=== PATIENT | female | born 1995 | race Caucasian/White ===

== ENCOUNTER 2024-01-24 09:25 | Inpatient (IN) | payer MEDICAID ==
[2024-01-24] MEDS ORDERED: Sodium Chloride 0.9% 10 ML Syringe FLUSH PRN ×2 (10:27→14:04)
[2024-01-24 10:55] LABS: BASOPHILS PERCENT AUTO 0.4 % (0.0-1.0); EOSINOPHILS ABSOLUTE AUTO 0.1 K/mm3 (0.0-0.4); EOSINOPHILS PERCENT AUTO 0.9 % (0.0-6.0); HEMATOCRIT 30.1 % (37.0-47.0); HEMOGLOBIN 9.7 gm/dl (12.0-16.0); IMMATURE GRAN ABSOLUTE AUTO 0.02 K/mm3 (0.00-0.05); IMMATURE GRAN PERCENT AUTO 0.4 % (0.0-0.4); LYMPHOCYTES ABSOLUTE AUTO 1.8 K/mm3 (1.0-4.8); MEAN CORPUSCULAR HEMOGLOBIN 25.1 pg (28.0-32.0); MEAN CORPUSCULAR HGB CONC 32.2 g/dl (32.0-36.0); MEAN PLATELET VOLUME 9.7 fl (9.4-12.3); MONOCYTES ABSOLUTE AUTO 0.4 K/mm3 (0.0-0.8); NEUTROPHILS ABSOLUTE AUTO 3.3 K/mm3 (1.8-7.7); NEUTROPHILS PERCENT AUTO 59.3 % (41.0-71.0); PLATELET COUNT,PLT 226 K/mm3 (150-400); RED BLOOD CELL COUNT 3.86 M/mm3 (4.10-5.30)
[2024-01-24] MEDS: Lactated Ringers 1,000 ML IV SCH (10:55)
[2024-01-24] MEDS: Azithromycin 500 MG in Sodium Chloride 0.9% 250 ML IV ONE (11:00)
[2024-01-24] MEDS: Metoclopramide 10 MG/2 ML SDV IVPUSH ONE (11:58)
[2024-01-24] MEDS: Citric Acid/Sodium Citrate Solution 30 ML Cup PO ONE (11:59)
[2024-01-24] MEDS ORDERED: Ondansetron 4 MG/2 ML SDV ONE (12:04)
[2024-01-24] MEDS ORDERED: Ketorolac 30 MG/ML SDV ONE (12:04)
[2024-01-24] MEDS ORDERED: Oxytocin 10 Units/1 ML SDV ONE (12:04)
[2024-01-24] MEDS ORDERED: Lactated Ringers 2,000 ML ONE (12:04)
[2024-01-24] MEDS ORDERED: Morphine PF 10 MG/10 ML SDV ONE (12:04)
[2024-01-24] MEDS ORDERED: ceFAZolin 2 GM Vial ONE (12:09)
[2024-01-24] MEDS ORDERED: Lidocaine 1% 5 ML VIAL ONE (12:40)
[2024-01-24] MEDS ORDERED: ePHEDrine 50 MG/ML SDV ONE (12:43)
[2024-01-24] MEDS ORDERED: Ondansetron 4 MG/2 ML SDV IVPUSH PRN (12:55)
[2024-01-24] MEDS ORDERED: diphenhydrAMINE 50 MG/ML SDV IVPUSH PRN (12:55)
[2024-01-24] MEDS ORDERED: fentaNYL 100 MCG/2 ML SDV IVPUSH PRN (12:55)
[2024-01-24] MEDS ORDERED: Meperidine 50 MG/ML Vial IVPUSH PRN (12:55)
[2024-01-24] MEDS ORDERED: ePHEDrine 50 MG/ML SDV IVPUSH PRN (14:04)
[2024-01-24] MEDS ORDERED: Acetaminophen/oxyCODONE 325-5 MG Tab PO PRN (14:04)
[2024-01-24] MEDS ORDERED: Docusate Sodium 100 MG Cap PO PRN (14:04)
[2024-01-24] MEDS ORDERED: Naloxone 0.4 MG/ML SDV IVPUSH PRN (14:04)
[2024-01-24] MEDS: Ondansetron 4 MG/2 ML SDV IV PRN (15:27)
[2024-01-24] MEDS: Dextrose 5%-Lactated Ringers 1,000 ML IV SCH (15:41)
[2024-01-24] MEDS: Methylergonovine 0.2 MG/1 ML Amp IM STA (16:10)
[2024-01-24] MEDS: Tranexamic Acid 1,000 MG/10 ML Vial IV STA (16:13)
[2024-01-24] MEDS: Tranexamic Acid 1,000 MG/10 ML Vial ONE (16:15)
[2024-01-24] MEDS: Carboprost Tromethamine 250 MCG/1 mL Vial IM STA (16:17)
[2024-01-24] MEDS: ceFAZolin 2 GM in Sodium Chloride 0.9% 50 ML IV ONE ×2 (16:27→21:15)
[2024-01-24] MEDS ORDERED: Sodium Chloride 0.9% 500 ML IV SCH (16:45)
[2024-01-24] MEDS ORDERED: ceFAZolin 2 GM in Sodium Chloride 0.9% 50 ML IV ONE (16:55)
[2024-01-24] MEDS: Methylergonovine 0.2 MG/1 ML Amp IM SCH (20:10)
[2024-01-24] MEDS ORDERED: Sodium Chloride 0.9% 10 ML Syringe FLUSH SCH (21:00)
[2024-01-24] MEDS: Ketorolac 30 MG/ML SDV IVPUSH SCH (21:10)
[2024-01-24] MEDS: diphenhydrAMINE 50 MG/ML SDV IVPUSH PRN (21:39)
[2024-01-24 23:06] LABS: HEMATOCRIT 31.2 % (37.0-47.0); HEMOGLOBIN 10.4 gm/dl (12.0-16.0); MEAN CORPUSCULAR HGB CONC 33.3 g/dl (32.0-36.0); MEAN PLATELET VOLUME 10.4 fl (9.4-12.3); PLATELET COUNT,PLT 153 K/mm3 (150-400); RED BLOOD CELL COUNT 3.85 M/mm3 (4.10-5.30); WHITE BLOOD CELL COUNT,WBC 10.52 K/mm3 (3.9-11.3)
[2024-01-24 23:28] LABS: FIBRINOGEN 323 mg/dL (187-446)
[2024-01-24 23:29] LABS: PROTHROMBIN TIME 9.8 SECONDS (9.7-12.0)
[2024-01-24 23:30] LABS: PTT,PARTIAL THROMBOPLSTIN TIME 22.8 SECONDS (21.7-31.4)
[2024-01-24 23:52] LABS: INR < 0.93
[2024-01-25 05:46] LABS: CALCIUM 8.6 mg/dL (8.5-10.1); CREATININE 0.5 mg/dL (0.55-1.02); EST CRCL DRUG DOSING (CG) 132.49 mL/min
[2024-01-25 06:29] LABS: BASOPHILS PERCENT AUTO 0.3 % (0.0-1.0); EOSINOPHILS PERCENT AUTO 0.4 % (0.0-6.0); HEMATOCRIT 26.2 % (37.0-47.0); HEMOGLOBIN 8.8 gm/dl (12.0-16.0); IMMATURE GRAN ABSOLUTE AUTO 0.02 K/mm3 (0.00-0.05); IMMATURE GRAN PERCENT AUTO 0.3 % (0.0-0.4); LYMPHOCYTES ABSOLUTE AUTO 1.2 K/mm3 (1.0-4.8); LYMPHOCYTES PERCENT AUTO 15.5 % (24.0-44.0); MEAN CORPUSCULAR HEMOGLOBIN 26.4 pg (28.0-32.0); MEAN CORPUSCULAR HGB CONC 33.6 g/dl (32.0-36.0); MEAN CORPUSCULAR VOLUME 78.7 fl (83.0-99.0); MEAN PLATELET VOLUME 10.7 fl (9.4-12.3); MONOCYTES ABSOLUTE AUTO 0.6 K/mm3 (0.0-0.8); MONOCYTES PERCENT AUTO 7.3 % (0.0-8.0); NEUTROPHILS ABSOLUTE AUTO 6.1 K/mm3 (1.8-7.7); NEUTROPHILS PERCENT AUTO 76.2 % (41.0-71.0); PLATELET COUNT,PLT 144 K/mm3 (150-400); RED BLOOD CELL COUNT 3.33 M/mm3 (4.10-5.30); WHITE BLOOD CELL COUNT,WBC 7.95 K/mm3 (3.9-11.3)
[2024-01-25] MEDS: Simethicone 80 MG Tab.Chew PO SCH (12:34)
[2024-01-25] MEDS ORDERED: Ibuprofen 600 MG Tab PO PRN (14:00)
[2024-01-26] MEDS: Acetaminophen/oxyCODONE 325-5 MG Tab PO PRN (00:26)
[2024-01-26 06:07] LABS: HEMATOCRIT 22.8 % (37.0-47.0); HEMOGLOBIN 7.5 gm/dl (12.0-16.0); MEAN CORPUSCULAR HEMOGLOBIN 26.1 pg (28.0-32.0); MEAN CORPUSCULAR HGB CONC 32.9 g/dl (32.0-36.0); MEAN CORPUSCULAR VOLUME 79.4 fl (83.0-99.0); MEAN PLATELET VOLUME 10.6 fl (9.4-12.3); PLATELET COUNT,PLT 146 K/mm3 (150-400); RED BLOOD CELL COUNT 2.87 M/mm3 (4.10-5.30); WHITE BLOOD CELL COUNT,WBC 6.51 K/mm3 (3.9-11.3)
== END 2024-01-26 15:20 | disposition home or self-care (01) | DRG 787 ==
LOC: JD.OBCHECK 09:25 → JD.OB 09:26 → JD.OBCHECK 10:27 → JD.MS 13:27 → JD.OB 14:19
PROVIDERS: ADMIT Obstetrics & Gynecology; ATTEND Obstetrics & Gynecology
PROC: 30233N1 Transfusion of Nonautologous Red Blood Cells into Peripheral Vein, Percutaneous Approach (ICD-10-PCS; 2024-01-24)
PROC: 10D00Z1 Extraction of Products of Conception, Low, Open Approach (ICD-10-PCS; principal; 2024-01-24 12:04)
DX: O34.211 Maternal care for low transverse scar from previous cesarean delivery (principal); O72.2 Delayed and secondary postpartum hemorrhage; Z37.0 Single live birth; Z3A.38 38 weeks gestation of pregnancy; Z87.891 Personal history of nicotine dependence; O99.02 Anemia complicating childbirth
CPT/HCPCS: 36415; 36430; 59025; 80048; 84112; 85025; 85027; 85384; 85610; 85730; 86592; 86850; 86900; 86901; 86922; 94762; A9270-GY; J0456; J0690; J1200; J1885; J2210; J2274; J2405; J2590; J2765; J3490; J7050; J7120; J7121; P9016

== ENCOUNTER 2024-08-31 14:03 | Emergency (ER) | payer MEDICAID | END 2024-08-31 16:57 | disposition left against medical advice (07) | LOC: JD.ED 14:03 | DX: Z53.21 Procedure and treatment not carried out due to patient leaving prior to being seen by health care provider (principal) ==